=== PATIENT | male | born 1995 | race Caucasian/White ===

== ENCOUNTER 2020-10-08 07:13 | Emergency (ER) | payer OTHER, SELFPAY ==
[2020-10-08 07:13] VITALS: BP 155/99; PULSE 105; RESP 18; TEMP 36.9; O2SAT 99; BMI 33.6
[2020-10-08 07:16] VITALS: BP 144/88; PULSE 109; RESP 16; TEMP 37; O2SAT 99
--- NOTE | 2020-10-08 07:40 | EKG12_ITS ---
Test Reason : SOB Blood Pressure : / mmHG Vent. Rate : 094 BPM Atrial Rate : 094 BPM P-R Int : 130 ms QRS Dur : 088 ms QT Int : 318 ms P-R-T Axes : 067 040 012 degrees QTc Int : 397 ms Normal sinus rhythm Normal ECG Confirmed by EMILY WONG, DEENA ([id number]), medical transcription editor RICK BOSS ([id number]) on 10/11/2020 11:05:20 AM Referred By: DEBRA Confirmed By:DEENA DIAZ MD
--- NOTE | 2020-10-08 07:43 | ED.DCSUM_ITS ---
History of Present Illness Chief Complaint: Shortness of Breath Informant: Patient Narrative: 24-year-old male presents for the evaluation of fever headache and shortness of breath. Symptoms began on after he finished power lifting. He notes his temperature has been 104.7. It has been resolving to the daytime without taking any medications. He notes nighttime sweats. He denies any cough but states he does feel like he cannot catch his breath. He describes his headache is generalized. No neck stiffness. No vomiting or diarrhea. He notes that he really not had much of an appetite. He states he only urinated 3 times yesterday. He notes his urine is very dark. He notes a mild midsternal ache. The patient states that he has been injecting anabolic steroids. He typically injects in his gluteal muscle. He denies any infectious symptoms there. Past Medical History - Allergies and Home Meds Allergies/Adverse Reactions: Allergies No Known Allergies Allergy (Verified 10/08/20 07:16) Primary Care Physician: Elvin Chavis MD [Primary Care Provider] - Prior records reviewed: Yes Past Medical History: None Surgical History: noncontributory Lives: Spouse/ Significant Other, With Family Smoking Status: Never smoker Drugs: None Review of Systems General: Reports: Chills, Fever, Malaise, Sweats Eyes: Denies: Visual changes - bilaterally, Diplopia ENT: Denies: Rhinorrhea, Sore throat Cardiovascular: Reports: Chest pain. Denies: Palpitations Respiratory: Reports: Dyspnea, Dyspnea on exertion. Denies: Cough Gastrointestinal: Reports: - - Anorexia. Denies: Abdominal pain, Nausea, Vomiting, Diarrhea, Melena, Hematochezia Genitourinary: Denies: Dysuria, Hematuria, Frequency Musculoskeletal: Reports: Myalgias. Denies: Back pain, Extremity Pain Skin: Denies: Rash, Wounds Neurological: Reports: Headache. Denies: Weakness, Numbness Physical Exam Vital Signs/Narrative: Vital Signs Temp Pulse Resp BP Pulse Ox 10/08/20 07:16 98.6 F 109 H 16 144/88 H 99 10/08/20 07:13 98.5 F 105 H 18 155/99 H 99 Inital Vital Signs reviewed: Yes General: Well nourished, Well developed, No Acute Distress Head: Normocephalic, Atraumatic Eyes: Perrl, EOMI ENT: Moist mucous membranes, No rhinorrhea Neck: Supple, Nontender Cardiovascular: Regular rate, No murmurs, Tachycardia Respiratory: No distress, CTA bilaterally, Chest nontender, - - Patient has a mild tachypnea but speaks in full sentences. Abdomen: Soft, Nontender, Nondistended, Normal bowel sounds Back: Nontender, Normal Inspection Extremities: Nontender, No edema Skin: Normal color, No rash Neurological: Alert, Oriented x3, Cranial nerves II-XII grossly intact, Normal Strength, Normal Sensation Psychological: Normal affect, Normal Mood Diagnostic/Tx/Re-eval Clinical Impression(s) from Imaging Studies Chest X-Ray 10/08/20 07:49 IMPRESSION: No acute cardiopulmonary process. Electronically Signed: Kaleb Murray MD at 8:07 EST Tel , Service support , Laboratory Last Values WBC 8.6 K/mm3 (4.4-11.0) 10/08/20 07:50 RBC 5.41 M/mm3 (4.6-6.2) 10/08/20 07:50 Hgb 16.7 g/dL (13.0-16.5) H 10/08/20 07:50 Hct 50.0 % (40-54) 10/08/20 07:50 MCV 92.4 fL (80-94) 10/08/20 07:50 MCH 30.9 pg (27.0-32.0) 10/08/20 07:50 MCHC 33.4 g/dL (32-36) 10/08/20 07:50 RDW Std Deviation 49.9 fl (35.1-43.9) H 10/08/20 07:50 RDW Coeff of Angelica 14.6 % (11.6-14.6) 10/08/20 07:50 Plt Count 317 K/mm3 (150-450) 10/08/20 07:50 MPV 8.4 fl (6.2-12.0) 10/08/20 07:50 Immature Gran % (Auto) 1.000 % (0.0-0.9) H 10/08/20 07:50 Neut % (Auto) 62.6 % (47-70) 10/08/20 07:50 Lymph % (Auto) 18.6 % (19-41) L 10/08/20 07:50 Davidson % (Auto) 16.5 % (0-10) H 10/08/20 07:50 Eos % (Auto) 0.8 % (0-5) 10/08/20 07:50 Baso % (Auto) 0.5 % (0-1) 10/08/20 07:50 Absolute Neuts (auto) 5.4 X10^3/uL (2.0-7.7) 10/08/20 07:50 Absolute Lymphs (auto) 1.60 X10^3/uL (0.83-4.51) 10/08/20 07:50 Nucleated RBC % 0 % (0-5) 10/08/20 07:50 Sodium 138 mmol/L (136-145) 10/08/20 07:50 Potassium 4.2 mmol/L (3.5-5.1) 10/08/20 07:50 Chloride 105 mmol/L (98-107) 10/08/20 07:50 Carbon Dioxide 28.0 mmol/L (21.0-32.0) 10/08/20 07:50 Anion Gap 5 (5-15) 10/08/20 07:50 BUN 7 mg/dL (7-18) 10/08/20 07:50 Creatinine 1.34 mg/dL (0.70-1.30) H 10/08/20 07:50 Estim Creat Clear Calc 95.24 ml/min 10/08/20 07:50 Est GFR (MDRD) Af Amer 83 mL/min (>60) 10/08/20 07:50 Est GFR (MDRD) Non-Af 69 mL/min (>60) 10/08/20 07:50 BUN/Creatinine Ratio 5.2 RATIO (10-20) L 10/08/20 07:50 Glucose 104 mg/dL (74-106) 10/08/20 07:50 Lactic Acid 0.7 mmol/L (0.4-1.9) 10/08/20 09:50 Calcium 8.6 mg/dL (8.5-10.1) 10/08/20 07:50 Total Bilirubin 0.60 mg/dL (0.20-1.00) 10/08/20 07:50 AST 53 U/L (15-37) H 10/08/20 07:50 ALT 158 U/L (16-61) H 10/08/20 07:50 Alkaline Phosphatase 75 U/L (45-117) 10/08/20 07:50 Total Creatine Kinase 238 U/L (39-308) 10/08/20 07:50 Troponin I 0.080 ng/mL (<0.045) H 10/08/20 10:50 Total Protein 7.3 g/dL (6.4-8.2) 10/08/20 07:50 Albumin 3.3 g/dL (3.2-5.0) 10/08/20 07:50 Globulin 4.0 g/dL (2.2-4.2) 10/08/20 07:50 Albumin/Globulin Ratio 0.8 RATIO (0.9-2.4) L 10/08/20 07:50 Urine Color Yellow (Yellow) 10/08/20 10:11 Urine Clarity Clear (Clear) 10/08/20 10:11 Urine pH 6.5 (5.0 - 8.0) 10/08/20 10:11 Ur Specific [place] 1.010 (1.002-1.030) 10/08/20 10:11 Urine Protein Negative mg/dl (Negative) 10/08/20 10:11 Urine Glucose (UA) Normal mg/dl (Normal) 10/08/20 10:11 Urine Ketones Negative mg/dl (Negative) 10/08/20 10:11 Urine Occult Blood Negative /ul (Negative) 10/08/20 10:11 Urine Nitrite Negative (Negative) 10/08/20 10:11 Urine Bilirubin Negative mg/dL (Negative) 10/08/20 10:11 Urine Urobilinogen Normal mg/dl (Normal) 10/08/20 10:11 Ur Leukocyte Esterase Negative /ul (Negative) 10/08/20 10:11 Urine RBC 0 SEEN /hpf (0-5) 10/08/20 10:11 Urine WBC 0 SEEN /hpf (0-5) 10/08/20 10:11 Ur Squamous Epith Cells 0 SEEN /hpf (0-5) 10/08/20 10:11 Urine Bacteria RARE /hpf (None Seen) 10/08/20 10:11 Urine Mucus 0 SEEN /hpf (<or=2+) 10/08/20 10:11 - EKG Initial EKG Interpretation: Sinus Rhythm - EKG demonstrates a normal sinus rhythm at a rate of 94. No concerning features of ACS or ectopy. - Medical Decision Making Patient's influenza and Covid test were negative. Chest x-ray and CT of the chest also negative. The patient's white count is 8 with high monocytes and low lymphocytes. His troponin is slightly elevated. I spoke with cardiology who recommends a delta troponin. I discussed my concerns with the patient regarding potential for bacteremia or false negative Covid test. We also talked about myocarditis. We talked about the possibility with his slight elevation in creatinine and his symptoms beginning after a heavy workout about resolving rhabdomyolysis. He does not wish to have a Covid PCR. He states he just wanted to have a negative Covid test so that he could go back to work. He does not feel that he needs to be hospitalized. He wants to know when his brother can come pick him up. While I disagree with the patient's decision to leave it he has the capacity to make the decision. As I try to work through my thought process with the patient he continually looks at the clock. He then asked when his brother can come get him. Patient will be instructed to drink plenty of fluids Tylenol Motrin for fever follow-up with primary care return if worsening. ED Disposition - Plan for ED Patient: Disposition: Home or Assisted Living Diagnosis: Febrile illness, acute, Elevated troponin I level Instructions: ED FUO Adult Referrals: Elvin Chavis MD [Primary Care Provider] - 1-2 Days if not improving
--- NOTE | 2020-10-08 07:44 | NURSING ---
NO OLD EKGS
[2020-10-08] MEDS: 0.9% Normal Saline 1,000 ML 1000 ML IV (07:48)
[2020-10-08] MEDS: Ketorolac 30 MG/ML Syringe IV (07:49)
--- NOTE | 2020-10-08 07:49 | RAD_ITS ---
STUDY: X-RAY CHEST REASON FOR EXAM: Male, 24 years old. Dyspnea, shortness of breath TECHNIQUE: AP portable upright chest COMPARISON: 10/08/2020 FINDINGS: The lungs are clear, symmetrically and normally inflated. Normal cardiomediastinal silhouette, jl and pleural margins. No acute osseous or upper abdominal abnormality. RAD/Chest 1 View (Portable) IMPRESSION: No acute cardiopulmonary process. Electronically Signed: Kaleb Murray MD at 8:07 EST Tel , Service support ,
[2020-10-08 08:06] LABS: Absolute Neutrophil Count 5.4 X10^3/uL (2.0-7.7); Basophil# 0.04 X10^3/uL; Basophil% 0.5 % (0-1); Eosinophil# 0.07 X10^3/uL; Eosinophils% 0.8 % (0-5); Hemoglobin 16.7 g/dL (13.0-16.5); Lymphocyte % 18.6 % (19-41); Mean Corp Hgb Conc 33.4 g/dL (32-36); Mean Corpuscular Hgb 30.9 pg (27.0-32.0); Mean Corpuscular Volume 92.4 fL (80-94); Mean Platelet Vol. 8.4 fl (6.2-12.0); Monocyte# 1.42 X10^3/uL; Monocyte% 16.5 % (0-10); NRBC Flagged by Analyzer 0 % (0-5); Neutrophil # 5.39 X10^3/uL (2.7-7.7); Neutrophil % 62.6 % (47-70); Platelet Count 317 K/mm3 (150-450); RBC Distribution Width CV 14.6 % (11.6-14.6); RBC Distribution Width SD 49.9 fl (35.1-43.9); Red Blood Count 5.41 M/mm3 (4.6-6.2); White Blood Count 8.6 K/mm3 (4.4-11.0)
[2020-10-08 08:23] LABS: ALB/GLOB Ratio 0.8 RATIO (0.9-2.4); AST(SGOT) 53 U/L (15-37); Alanine Aminotransfer ALT/SGPT 158 U/L (16-61); Albumin, Serum 3.3 g/dL (3.2-5.0); Alkaline Phosphatase 75 U/L (45-117); Anion Gap 5 (5-15); BUN 7 mg/dL (7-18); BUN/Creat Ratio 5.2 RATIO (10-20); Calcium,Total 8.6 mg/dL (8.5-10.1); Chloride 105 mmol/L (98-107); Creatinine, Serum 1.34 mg/dL (0.70-1.30); EST Glomerular Filtration Rate 69 mL/min (>60); Est Glom Filt Rate - Afr Amer 83 mL/min (>60); Estimated Creatinine Clearance 95.24 ml/min; Glucose 104 mg/dL (74-106); Potassium 4.2 mmol/L (3.5-5.1); Protein, Total 7.3 g/dL (6.4-8.2); Sodium Level 138 mmol/L (136-145)
[2020-10-08 08:24] LABS: CPK Total, Creatine Kinase 238 U/L (39-308)
--- NOTE | 2020-10-08 08:32 | CT_ITS ---
STUDY: CTA CHEST REASON FOR EXAM: Male, 24 years old. SHORT OF BREATH,FEVER,CHEST TIGHTNESS -- NEGATIVE COVID TEST TODAY RADIATION DOSAGE (If Supplied By Facility): CTDIvol = ( 12.65 ) mGy, DLP = ( 579.98 ) mGycm TECHNIQUE: The examination was performed with the intravenous administration of IV 100mL Isovue-370. Post-processing of the angiographic images was performed, with multiplanar reformation and 3D reconstruction. Individualized dose optimization techniques were used for this CT. COMPARISON: None. FINDINGS: There is limited enhancement of the main pulmonary artery and right and left pulmonary arteries. There is limited enhancement of the bilateral peripheral pulmonary arteries. There is no demonstrated pulmonary embolism. Normal thoracic aorta and visualized great vessels. There is no demonstrated aortic dissection. Normal heart and pericardium. Normal mediastinum. Normal hilar regions. Normal visualized trachea and bronchi. The lungs are well expanded. No superimposed acute pulmonary process. Specifically, no evidence of organized infiltrate, suspicious airspace or ground glass opacifications. There is however a noncalcified 7 mm nodule in the right upper lobe best seen on axial image 184/272. A 6 month follow-up is recommended to assess stability. Normal pleura. Normal chest wall structures. Normal osseous structures. Normal visualized upper abdomen. CT/CTA Chest W/WO Contrast IMPRESSION: No demonstrated PE, or thoracic aortic aneurysm or dissection. The contrast fills within the pulmonary arteries is not optimal. A subtle filling defect could be present and overlooked, particularly in the distal vessels No pleural or pericardial effusions, no coronary artery calcifications 0.7 cm noncalcified irregular bordered nodule in the right upper lobe, six-month follow-up recommended to assess stability Electronically Signed: Jimi Murray MD at 9:18 EST , Service support ,
[2020-10-08 08:57] VITALS: BP 143/89; PULSE 97; RESP 16; TEMP 36.9; O2SAT 98
[2020-10-08 09:59] VITALS: BP 149/76; PULSE 93; RESP 16; TEMP 36.9; O2SAT 99
[2020-10-08 10:50] LABS: Lactic Acid 0.7 mmol/L (0.4-1.9)
[2020-10-08 11:01] LABS: Mucous, Urine 0 SEEN /hpf (<or=2+); Red Blood Cells-Urine 0 SEEN /hpf (0-5); Squamous Epithelial Cells - UA 0 SEEN /hpf (0-5); White Blood Cells 0 SEEN /hpf (0-5)
[2020-10-08 11:07] LABS: Color, Urine Yellow (Yellow); Glucose, Dipstick Normal (Normal); Ketone-Dipstick Negative (Negative); Leukocyte Esterase-Dipstick Negative /ul (Negative); Nitrite-Dipstick Negative (Negative); Occult Blood-Urine Negative /ul (Negative); Protein-Dipstick Negative (Negative); Urine Bilirubin Dipstick Negative (Negative); Urine Clarity Clear (Clear); Urine Urobilinogen Normal (Normal); Urine pH 6.5 (5.0 - 8.0)
[2020-10-08 11:13] LABS: Bacteria RARE /hpf (None Seen)
[2020-10-08 12:18] VITALS: BP 146/81; PULSE 84; RESP 16; O2SAT 100
== END 2020-10-08 12:22 | disposition home or self-care (01) ==
PROVIDERS: Emergency Provider Emergency Medicine; PCP Family Medicine
DX: R50.9 Fever, unspecified (principal); R79.89 Other specified abnormal findings of blood chemistry
CPT/HCPCS: 71045; 71275; 80053; 81001; 82550; 83605; 84484; 85025; 87040; 87426; 87804; 93005; 96361; 96374; 99283; J7030; Q9967; A4216

== ENCOUNTER 2022-12-09 04:54 | Emergency (ER) | payer OTHER, SELFPAY ==
[2022-12-09 04:55] VITALS: BP 165/97; PULSE 87; RESP 16; TEMP 36.1; O2SAT 97; BMI 35.1
--- NOTE | 2022-12-09 05:07 | EX.ED.DYSGE1 ---
HPI History of Present Illness Chief Complaint: Wound Narrative Narrative: 27-year-old male presenting with right posterior ear pain. States is nontraumatic. Hurts behind his ear and in his right lower earlobe. He has not noticed any drainage. He denies any trauma. No headache. No ear drainage. No inner ear pain. He states has not had this before. He states he does not have a primary care physician. PFSH PFSH Medical History no medical history Home Medications cephalexin 500 mg capsule 500 mg PO Q6 7 days #28 CAPSULES 12/09/22 [Rx Last Taken Unknown] naproxen 500 mg tablet (Naprosyn) 500 mg PO BID PRN pain #20 tabs 12/09/22 [Rx Last Taken Unknown] Allergy/AdvReac Type Severity Reaction Status Date / Time No Known Allergies Allergy Verified 10/08/20 07:16 Surgical History H/O hernia repair Social History Smoking Status: Never smoker ROS ROS ED Constitutional Constitutional ED: Denies chills, fever(s) or sweats Eyes Eyes: Denies blurry vision or change in vision ENT ENT ED: Reports ear pain right; Denies sore throat Cardiovascular Cardiovascular: Denies chest pain, palpitations or racing heartbeat Respiratory/Chest Respiratory/Chest: Denies cough, dyspnea or sputum Gastrointestinal Gastrointestinal: Denies abdominal pain, constipation, diarrhea, nausea or vomiting Genitourinary Genitourinary ED: Denies dysuria, hematuria or urinary frequency Musculoskeletal Musculoskeletal: Denies arthralgias, myalgias or neck pain Integumentary Denies abscess, Abrasions or rash Neurologic Neurologic: Denies headache(s), paresthesias or weakness Psychiatric Psychiatric: Denies anxiety, depression, suicidal ideation or suicidal thoughts Endocrine Endocrinology: Denies polydipsia or polyuria EXAM Physical Exam Const Vital Signs: 12/09/22 04:55 Temperature 97.0 F L Temperature Source Temporal Pulse Rate 87 Respiratory Rate 16 Blood Pressure 165/97 H Blood Pressure Mean 119 Pulse Ox 97 Oxygen Delivery Method Room Air Positive well nourished General Appearance ED: NAD HEENT Reports TM's clear, moist mucous membranes and dry mucous membranes normocephalic External Ear: external ears normal and no preauricular adenopathy External Auditory Canal: EAC's normal Tympanic Membrane ED: Yes TM's clear Mouth ED: Yes oral and palatal mucosa normal, Yes lips normal, Yes tongue normal and Yes dry mucous membranes Mouth: oral and palatal mucosa normal, lips normal, tongue normal and dry mucous membranes MDM MDM MDM Narrative Medical decision making narrative: Patient presenting for right ear pain. It is actually behind the right ear and into the right lower earlobe. I do not see any signs of swelling. He is tender here. There is maybe some mild erythema in this region. The TM looks normal. No lymphadenopathy noted. Its possible this could be early cellulitis. Patient was started on a course of Keflex and Naprosyn. He is counseled to monitor this. Return precautions were discussed. Impression: 1. Cellulitis Lab Data Attestation: I reviewed the patient's lab results. Discharge Plan Triage Chief Complaint: Wound ED Provider: Ramón Garcia Dx/Rx/DC Orders Instructions: ED Cellulitis, Facial Prescriptions: New cephalexin 500 mg capsule 500 mg PO Q6 7 Days Qty: 28 0RF naproxen [Naprosyn] 500 mg tablet 500 mg PO BID PRN (Reason: pain) Qty: 20 0RF Primary Care Provider: Elvin Chavis Referrals: Elvin Chavis MD [Primary Care Provider] - Disposition Disposition: Home, Self Care
[2022-12-09] MEDS: Cephalexin 250 MG Capsule 500 MG PO (05:13)
== END 2022-12-09 05:47 | disposition home or self-care (01) ==
PROVIDERS: Emergency Provider Student in an Organized Health Care Education/Training Program; Visit Provider Student in an Organized Health Care Education/Training Program
DX: H60.11 Cellulitis of right external ear (principal)
CPT/HCPCS: 99283